=== PATIENT | male | born 1980 | race Caucasian/White ===

== ENCOUNTER 2016-10-18 09:55 | Emergency (ER) | payer SELFPAY ==
--- NOTE | 2016-10-18 10:11 | ER Document Report ---
ED Medical Screen (RME) - General Chief Complaint: Eye Problem Stated Complaint: LEFT EYE PROBLEM Notes: Patient was at work this morning at 9 AM, sitting at the computer, when suddenly he noted "flashing lights" in the right eye and then was unable to see out of that eye. The flashing lights lasted about a half an hour. Patient now has blurred vision and limited lateral peripheral vision in the right eye. No pain in the eye. Never had any problems like this previously. No recent head injury or trauma. Only takes ibuprofen occasionally for chest wall pain that he suffers since he had a spontaneous pneumothorax last year. TRAVEL OUTSIDE OF THE [place] IN LAST 30 DAYS: No - Related Data Allergies/Adverse Reactions: minocycline Allergy (Verified 10/18/16 09:59) Sulfa (Sulfonamide Antibiotics) Allergy (Verified 10/18/16 09:59) Past Medical History Renal/ Medical History: Denies: Hx Peritoneal Dialysis Physical Exam - Vital signs Vitals: Temp Pulse Resp BP Pulse Ox 98.4 F 94 14 109/73 97 10/18/16 10:00 10/18/16 10:00 10/18/16 10:00 10/18/16 10:00 10/18/16 10:00 Course - Vital Signs Vital signs: Temp Pulse Resp BP Pulse Ox 98.4 F 94 14 109/73 97 10/18/16 10:00 10/18/16 10:00 10/18/16 10:00 10/18/16 10:00 10/18/16 10:00
[2016-10-18] MEDS ORDERED: TETRACAINE HCL 0.5% OPH SOLN 2 ML OD ONE (10:20)
--- NOTE | 2016-10-18 11:50 | ER Document Report ---
ED General - General Chief Complaint: Eye Problem Stated Complaint: LEFT EYE PROBLEM TRAVEL OUTSIDE OF THE [place] 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 Patient states this is transient and now is currently resolved. Patient denies any history trauma denies any eye pain denies any nausea vomiting dizziness. Patient does not wear contacts nor does he wear glasses. Patient's resting currently upon my evaluation. - Related Data Allergies/Adverse Reactions: minocycline Allergy (Verified 10/18/16 09:59) Sulfa (Sulfonamide Antibiotics) Allergy (Verified 10/18/16 09:59) Past Medical History - Social History Smoking Status: Current Every Day Smoker Family History: Reviewed & Not Pertinent Patient has suicidal ideation: No Patient has homicidal ideation: No Renal/ Medical History: Denies: Hx Peritoneal Dialysis Review of Systems - Review of Systems Constitutional: No symptoms reported EENT: Blurred vision - Flashing light blurry vision right eye Cardiovascular: No symptoms reported Respiratory: No symptoms reported Gastrointestinal: No symptoms reported Genitourinary: No symptoms reported Male Genitourinary: No symptoms reported Musculoskeletal: No symptoms reported Skin: No symptoms reported Hematologic/Lymphatic: No symptoms reported Neurological/Psychological: No symptoms reported Physical Exam - Vital signs Vitals: Temp Pulse Resp BP Pulse Ox 98.4 F 94 14 109/73 97 10/18/16 10:00 10/18/16 10:00 10/18/16 10:00 10/18/16 10:00 10/18/16 10:00 Interpretation: Normal - General General appearance: Appears well, Alert - HEENT Head: Normocephalic, Atraumatic Eyes: Normal Conjunctiva: Normal Cornea: Normal Extraocular movements intact: Yes Eyelashes: Normal Pupils: PERRL Visual acuity- Right eye: 20/25 Visual acuity- Left eye: 20/25 Visual acuity- Both eyes: 20/20 Corrective lenses worn: No Anterior chamber: Normal Fundascopic: Normal - Respiratory Respiratory status: No respiratory distress Chest status: Nontender Breath sounds: Normal Chest palpation: Normal - Cardiovascular Rhythm: Regular Heart sounds: Normal auscultation Murmur: No - Abdominal Inspection: Normal Distension: No distension Bowel sounds: Normal Tenderness: Nontender Organomegaly: No organomegaly - Back Back: Normal, Nontender - Extremities General upper extremity: Normal inspection, Nontender, Normal color, Normal ROM , Normal temperature General lower extremity: Normal inspection, Nontender, Normal color, Normal ROM , Normal temperature, Normal weight bearing. No: Sujatha's sign - Neurological Neuro grossly intact: Yes Cognition: Normal Orientation: AAOx4 Charlie Coma Scale Eye Opening: Spontaneous [place] Coma Scale Verbal: Oriented [place] Coma Scale Motor: Obeys Commands Charlie Coma Scale Total: 15 Speech: Normal Motor strength normal: LUE, RUE, LLE, RLE Sensory: Normal - Psychological Associated symptoms: Normal affect, Normal mood - Skin Skin Temperature: Warm Skin Moisture: Dry Skin Color: Normal Course - Re-evaluation Re-evalutation: 10/18/16 15:16 An ultrasound of the right orbit was also performed showing no signs of retinal detachment. Patient's vision were full vision is also intact. Unclear etiology but no significant etiology seen this time. Patient was given ophthalmology follow-up will to return to the ER symptoms worsen - Vital Signs Vital signs: Temp Pulse Resp BP Pulse Ox 98.6 F 73 16 115/78 99 10/18/16 11:54 10/18/16 11:54 10/18/16 11:54 10/18/16 11:54 10/18/16 11:54 Discharge - Discharge Clinical Impression: Transient visual loss of left eye Disposition: HOME, SELF-CARE Additional Instructions: At this time I do not see any critical reason for the transient vision loss . I do not see any evidence of retinal detachment venous occlusion on exam today or on the ultrasound. However I recommend following up with the paediatric physiotherapist provided you may also follow-up with a local card puncher. Return to the ER symptoms worsen. Referrals: TIFFANY FERRELL MD [ACTIVE STAFF] - Follow up as needed CATA CONTRERAS DO [ACTIVE STAFF] - Follow up as needed
[2016-10-18 11:57] VITALS: BP 115/78
== END 2016-10-18 11:57 | disposition home or self-care (01) ==
LOC: ER 09:55
DX: H54.62 Unqualified visual loss, left eye, normal vision right eye (principal); F17.200 Nicotine dependence, unspecified, uncomplicated; Z88.2 Allergy status to sulfonamides
CPT/HCPCS: 99283